=== PATIENT | female | born 1975 | race Caucasian/White ===

== ENCOUNTER → 2016-10-20 | Outpatient (CLI) | payer OTHER ==
[~2016-10-20] MED LIST: CLINDAMYCIN HC300 MG PO; DESYREL100 MG PO; GABAPENTIN300 MG PO; LEVOTHROID125 MCG PO; LEVOTHYROXINE175 MCG PO; LYRICA50 MG PO; MEDROL DOSEPAK4 MG PO; METHADONE5 MG PO; MORPHINE SULFAT15 M1 PO; NAPROSYN500 MG PO; NOHOMEMEDS; OXYCODONE HCL10 MG PO; PERCOCET 5/31 TABLET PO; PREDNISONE20 MG PO; TRAMADOL HCL50 MG PO; TYLENOL325 M1 PO; VALIUM5 MG PO; VENTOLIN HFA18 GM IH; ZANAFLEX4 MG PO; ZITHROMAX250 MG PO
== END | disposition home or self-care (01) ==
LOC: CDC 11:54
DX: M19.011 Primary osteoarthritis, right shoulder (principal); M75.41 Impingement syndrome of right shoulder; R94.31 Abnormal electrocardiogram [ECG] [EKG]
CPT/HCPCS: 93000